=== PATIENT | male | born 1965 | race Hispanic/Latino ===

== ENCOUNTER 2024-12-11 11:47 | Emergency (ER) | payer OTHER, SELFPAY ==
[2024-12-11 12:05] VITALS: BP 141/84; PULSE 80; RESP 16; TEMP 36.6; O2SAT 99
--- NOTE | 2024-12-11 12:33 | ED.SKABFB ---
HPI - Skin/Abscess/Foreign Bdy General Chief complaint: Skin/Abscess/Foreign Body Stated complaint: ABSCESS Time Seen by Provider: 12/11/24 12:33 Source: patient, RN notes reviewed and old records reviewed Mode of arrival: ambulatory Limitations: no limitations History of Present Illness HPI narrative: 59-year-old male who presents to [facility] with possible boil to his left buttock for over a week with area becoming more painful in the past few days. Patient reports that he has not had any known fevers, has not applied any warm compresses or soaks to area and has not applied any topical medication. Patient has 2cm X 2cm area to his left lower inner buttock which has been draining bloody drainage today with inner fluctuation. Patient reports that he has had boils in the past. Has been taking some Advil for his discomfort. MD complaint: abscess/boil Onset (ago): week(s) (greater than a week increased pain past few days) Location: buttocks (left) Severity scale (1-10): 9 Quality: sharp Treatments prior to arrival: NSAID Related Data Home Medications ?Medication ?Instructions ?Recorded ?Confirmed ?Last Taken ?Type amlodipine 2.5 mg tablet mg 12/11/24 Unknown History methimazole 5 mg tablet mg 12/11/24 Unknown History pantoprazole 40 mg tablet,delayed mg PO 12/11/24 Unknown History release paroxetine HCl 40 mg tablet mg PO 12/11/24 Unknown History Allergies Allergy/AdvReac Type Severity Reaction Status Date / Time lisinopril Allergy Severe unknown Verified 12/12/24 06:04 Penicillins Allergy Severe Unknown Verified 12/12/24 06:04 Review of Systems Review of Systems: CONSTITUTIONAL: Denies fever, chills, or sweats. CARDIOVASCULAR: Denies chest pain, palpitations, or edema. RESPIRATORY: Denies cough or dyspnea. GASTROINTESTINAL: Denies abdominal pain, nausea, vomiting SKIN: Reports redness and swelling boil type of lesion to the left inner lower buttock with some bloody drainage noted today and inner wound fluctuant.is painful on palpation of area. MUSCULOSKELETAL: Denies myalgia. NEUROLOGIC: Denies headache, numbness All systems reviewed & are unremarkable except as noted in HPI and below PMFSH Past Medical History Medical History Hyperthyroidism Hypertension Surgical History Surgical History History of facial surgery cyst removed from left side of face Social History Social History Smoking packs per day: 1 Smoking cigarettes per day: 20.0 Smoking status: Current every day smoker Tobacco type: cigarettes Alcohol intake: current Alcohol use details: social Substance use type: does not use Living arrangements: with family Gender identity (if verbalized by the patient): Male Comments At time of signature, agree with nursing past medical, surgical, social and family history. There is no relevant family history pertinent to the presenting complaint Exam Narrative: GENERAL: Well-appearing, well-nourished, and in no acute distress. HEAD: Normocephalic, atraumatic. EYES: PERRLA and EOMI. ENT: Nares clear, no rhinorrhea or epistaxis. Mucous membranes moist. NECK: Supple. no lymphadenopathy CHEST: Clear to auscultation. No respiratory distress. HEART: Regular rate and rhythm. No murmur heard. Normal peripheral pulses. ABDOMEN: Soft, nontender, nondistended, normal active bowell sounds. EXTREMITIES: Normal range of motion. No edema. SKIN: Warm, dry. Erythema, fluctuation, tenderness, warmth with area 2cm X 2cm left inner lower buttock, draining some bloody drainage cleansed with wound care solution with inner aspect then draining some purulent drainage, site painful to palpation covered with 4X4's NEURO: No focal deficits. Alert and oriented x3. Course Course Emergency Course: Patient is aware of diagnosis, understands and agrees to treatment plan. Anticipatory guidance given. Patient agrees to follow-up as directed and is aware of reasons to seek care at the emergency department. Portions of this record may have been created with voice recognition software Level of Care: Express Care Visit Vital Signs Vital signs: Vital Signs Temperature 36.6 C 12/11/24 12:05 Pulse Rate 80 12/11/24 12:05 Respiratory Rate 16 12/11/24 12:05 Blood Pressure 141/84 H 12/11/24 12:05 Pulse Oximetry 99 12/11/24 12:05 Temperature 36.6 C 12/11/24 12:05 Pulse Rate 80 12/11/24 12:05 Respiratory Rate 16 12/11/24 12:05 Blood Pressure 141/84 H 12/11/24 12:05 Pulse Oximetry 99 12/11/24 12:05 Reviewed MDM - Skin/Abscess/Foreign Bdy MDM Narrative Medical decision making narrative: Does not appear at this time to be erythema multiforme, bullous, SJS, TEN; no evidence at this time to suggest RMSF, endocarditis or Lyme disease; patient looks well, nontoxic and is tolerating oral intake; no neurologic signs or symptoms; no headache, photophobia or neck pain; afebrile; appropriate for initial outpatient treatment; discussed the importance of follow-up, patient agrees. Patient does not have history of penetrating trauma, laceration, blunt trauma, recent surgery, immunosuppression, malignancy, obesity, alcoholism, corticosteroid use. Question cellulitis, necrotizing soft tissue infection, abscess. Differential Diagnosis Differential diagnosis: Likely abscess of skin or subcutaneous tissue and cellulitis Medical Records Attestation: I reviewed the patient's medical records. Critical Care Time Critical Care Time Critical Care Time: No Discharge Plan Discharge Clinical Impression: Abscess of buttock, left Patient Disposition: Home Condition: Stable Instructions: Antibiotic Form, Abscess (ED) Additional Instructions: cleanse left buttock with liquid Dial soap twice daily apply mupirocin ointment warm compresses to left buttocks 3 times daily and as needed watch for increasing infection--redness, swelling, drainage Tylenol or ibuprofen for any fever pain follow up with PCP in 7-10 days for a wound check recheck if develop fever, chills, increasing symptom monitor for any fevers Go to the ER if your symptoms become worse of if ANY new symptoms develop antibiotic as prescribed take all doses recommend taking this antibiotic with food If your symptoms persist, change or worsen significantly before you can contact your personal physician then please, without delay, go to the emergency department for further evaluation. Follow-up with PCP in 7-10 days or sooner if needed Follow up with PCP soon in regards to your blood pressure which is elevated above threshold for referral. Blood pressure above 120/80 may indicate pre-hypertension. 141/84 Patient Language: Czech Prescriptions: New clindamycin HCl [Cleocin HCl] 300 mg capsule 300 mg PO Q8H Qty: 30 0RF Rx Instructions: take with food take all of prescription mupirocin [Centany] 2 % ointment 1 applic topical BID Qty: 22 0RF No Action amlodipine 2.5 mg tablet pantoprazole 40 mg tablet,delayed release (DR/EC) PO methimazole 5 mg tablet paroxetine HCl 40 mg tablet PO Follow-up/Referrals: Neelam,Shamar Barajas MD [Primary Care Provider] - Time of Disposition: 12:44 Quality Cici Coma Scale Eyes: Open Verbal: Oriented and Alert Motor: Follows Commands [place] Coma Total Score: 15
== END 2024-12-11 12:55 | disposition home or self-care (01) ==
PROVIDERS: Emergency Provider Registered Nurse; PCP Family Medicine
DX: L02.31 Cutaneous abscess of buttock (principal); F17.210 Nicotine dependence, cigarettes, uncomplicated; I10 Essential (primary) hypertension; E05.90 Thyrotoxicosis, unspecified without thyrotoxic crisis or storm
CPT/HCPCS: 99213; G0463